=== PATIENT | female | born 1940 | race Caucasian/White ===

== ENCOUNTER 2018-09-18 10:03 | Emergency (ER) | payer OTHER ==
[~2018-09-18] VITALS: Ht 142.2 cm; Wt 53.5 kg
[2018-09-18] MEDS ORDERED: CIPRO500 MG PO (15:00)
[2018-09-18] MEDS ORDERED: SKELAXIN800 MG PO (15:00)
== END 2018-09-18 15:55 | disposition home or self-care (01) ==
LOC: ER 10:03
DX: N39.0 Urinary tract infection, site not specified (principal); M54.5 Low back pain